=== PATIENT | female | born 1945 | race Caucasian/White ===

== ENCOUNTER 2018-01-29 16:26 | Emergency (ER) | payer OTHER ==
[~2018-01-29] VITALS: Ht 180.3 cm; Wt 64.9 kg
[2018-01-29] MEDS ORDERED: METFORMIN HCL500 MG PO (16:38)
[2018-01-29] MEDS ORDERED: NORVASC10 MG PO (16:38)
[2018-01-29] MEDS ORDERED: BENAZEPRIL HCL20 MG PO (16:39)
[2018-01-29] MEDS ORDERED: GLAUCOMA EYE DROPS (16:39)
[2018-01-29] MEDS ORDERED: SYNTHROID75 MCG PO (16:39)
[2018-01-29] MEDS ORDERED: RESTASIS1 EACH OPHTHALMIC (16:39)
[2018-01-29] MEDS ORDERED: COLACE100 MG PO (19:28)
[2018-01-29] MEDS ORDERED: ZOFRAN ODT4 MG PO (19:28)
[2018-01-29] MEDS ORDERED: NORCO 5-325 TA1 EACH PO (19:28)
[2018-01-29 19:41] VITALS: BP 129/68
== END 2018-01-29 20:16 | disposition home or self-care (01) ==
LOC: M.ERS 16:26
DX: S42.211A Unspecified displaced fracture of surgical neck of right humerus, initial encounter for closed fracture (principal); M25.551 Pain in right hip; E11.9 Type 2 diabetes mellitus without complications; E03.9 Hypothyroidism, unspecified; E78.00 Pure hypercholesterolemia, unspecified; Z88.0 Allergy status to penicillin; W10.8XXA Fall (on) (from) other stairs and steps, initial encounter; Y93.89 Activity, other specified; Y92.89 Other specified places as the place of occurrence of the external cause; Y99.8 Other external cause status

== ENCOUNTER 2020-09-09 14:35 | Emergency (ER) | payer OTHER ==
[~2020-09-09] VITALS: Ht 152.4 cm; Wt 60.8 kg
[~2020-09-09 14:35] MED LIST: BENAZEPRIL HCL20 MG PO; COLACE100 MG PO; GLAUCOMA EYE DROPS; METFORMIN HCL500 MG PO; NORCO 5-325 TA1 EACH PO; NORVASC10 MG PO; RESTASIS1 EACH OPHTHALMIC; SYNTHROID75 MCG PO; ZOFRAN ODT4 MG PO
[2020-09-09] MEDS ORDERED: BENAZEPRIL 10 M10 MG PO (15:07)
[2020-09-09] MEDS ORDERED: NORVASC5 MG PO (15:07)
[2020-09-09] MEDS ORDERED: DORZOLAMIDE 2%10 ML OPHTHALMIC (15:08)
[2020-09-09] MEDS ORDERED: BONIVA150 MG PO (15:08)
[2020-09-09] MEDS ORDERED: NAPROSYN500 M1 PO (15:09)
[2020-09-09] MEDS ORDERED: MACROBID 100 M100 MG PO (15:09)
[2020-09-09] MEDS ORDERED: ROSUVASTATIN CA10 MG PO (15:10)
[2020-09-09] MEDS ORDERED: RESTASIS MULTI5.5 ML OPHTHALMIC (15:10)
[2020-09-09 17:23] VITALS: BP 118/68
== END 2020-09-09 17:24 | disposition home or self-care (01) ==
LOC: M.ERS 14:35
DX: S22.31XA Fracture of one rib, right side, initial encounter for closed fracture (principal); E11.9 Type 2 diabetes mellitus without complications; E03.9 Hypothyroidism, unspecified; E78.00 Pure hypercholesterolemia, unspecified; Z88.0 Allergy status to penicillin; Z79.899 Other long term (current) drug therapy; W18.30XA Fall on same level, unspecified, initial encounter; Y93.89 Activity, other specified; Y92.89 Other specified places as the place of occurrence of the external cause; Y99.9 Unspecified external cause status